=== PATIENT | male | born 1960 | race Caucasian/White ===

== ENCOUNTER → 2016-06-03 | Outpatient (CLI) | payer OTHER ==
--- NOTE | 2016-06-03 09:12 | DX ---
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 There is no evidence for loosening or infection. There is stable benign cortical thickening along the lateral humeral shaft. There is a stable healed right eighth posterior rib fracture. Impression: Stable x 2 months.
== END ==
LOC: BMCIMAGING 08:45
PROVIDERS: ATTEND Physician Assistant
DX: Z09 Encounter for follow-up examination after completed treatment for conditions other than malignant neoplasm (principal); Z98.890 Other specified postprocedural states

== ENCOUNTER → 2016-09-02 | Outpatient (CLI) | payer OTHER | LOC: BMCIMAGING 08:40 | PROVIDERS: ATTEND Physician Assistant | DX: Z98.890 Other specified postprocedural states (principal); Z96.611 Presence of right artificial shoulder joint ==